=== PATIENT | male | born 1945 | race Two or more races ===

== ENCOUNTER 2019-11-01 08:25 | Day surgery (SDC) | payer OTHER ==
[~2019-11-01 08:25] MED LIST: COZAAR25 MG PO
== END 2019-11-01 15:00 | disposition home or self-care (01) ==
LOC: AMB-ENDOS 08:25
DX: C20 Malignant neoplasm of rectum (principal); K57.30 Diverticulosis of large intestine without perforation or abscess without bleeding; K64.1 Second degree hemorrhoids